=== PATIENT | male | born 1955 | race Caucasian/White ===

== ENCOUNTER 2016-08-05 13:07 | Inpatient (IN) | payer OTHER ==
[~2016-08-05] VITALS: Ht 188 cm; Wt 116.0 kg
[2016-08-05] MEDS ORDERED: ACETAMINOPHEN 500 MG TAB PO STA (13:26)
[2016-08-05] MEDS ORDERED: ONDANSETRON 4 MG INJ IV STA (13:26)
[2016-08-05] MEDS ORDERED: SOD CHLORIDE 0.9% 1,000 ML IV STA (13:26)
[2016-08-05] MEDS ORDERED: morphine 4 MG/ML VIAL IV STA (13:26)
--- NOTE | 2016-08-05 13:53 | ERD ---
ER Documentation Chief Complaint Date/Time DATE: 08/05/16 TIME: 13:51 Chief Complaint LOWER RT ABD PAIN, SENT BY PCP FOR R/O APPENDICITIS HPI This a 61-year-old male who presents to the emergency department today for lower abdominal pain after being sent by his primary care physician to rule out appendicitis. Patient states he has had pain for the past 1-2 weeks they got significantly worse last night. States that he thinks the fever started last night. States he took aspirin for the pain. Denies any nausea vomiting, testicular pain ROS All systems reviewed and are negative except as per history of present illness. Allergies Allergies: Coded Allergies: No Known Allergy (Unverified , 08/05/16) PMhx/Soc History of Surgery: Yes (Cardiac Surgery 1962) Anesthesia Reaction: No Hx Neurological Disorder: No Hx Respiratory Disorders: No Hx Psychiatric Problems: No Hx Miscellaneous Medical Probl: No Hx Alcohol Use: No Hx Substance Use: No Hx Tobacco Use: No Smoking Status: Never smoker Physical Exam Vitals Vital Signs Date Time Temp Pulse Resp B/P Pulse Ox O2 Delivery O2 Flow Rate FiO2 08/05/16 13:09 100.8 115 18 114/82 96 Physical Exam Const: No acute distress Head: Atraumatic Eyes: Normal Conjunctiva ENT: Normal External Ears, Nose and Mouth. Neck: Full range of motion..~ No meningismus. Resp: Clear to auscultation bilaterally Cardio: Regular rate and rhythm, no murmurs Abd: Soft, right lower quadrant pain. Tenderness McBurney's. non distended. Normal bowel sounds. Mild left lower quadrant pain. No right upper quadrant tenderness. No epigastric tenderness. Skin: No petechiae or rashes Back: No midline or flank tenderness Ext: No cyanosis, or edema Neur: Awake and alert Psych: Normal Mood and Affect Result Diagram: 08/05/16 1355 08/05/16 1355 Results 24 hrs Laboratory Tests Test 08/05/16 13:55 White Blood Count 16.110^3/ul Red Blood Count 4.9210^6/ul Hemoglobin 15.0g/dl Hematocrit 43.6% Mean Corpuscular Volume 88.6fl Mean Corpuscular Hemoglobin 30.5pg Mean Corpuscular Hemoglobin Concent 34.4g/dl Red Cell Distribution Width 12.2% Platelet Count 31307^3/UL Mean Platelet Volume 9.4fl Neutrophils % 85.4% Lymphocytes % 7.5% Monocytes % 6.0% Eosinophils % 0.0% Basophils % 0.4% Nucleated Red Blood Cells % 0.0/100WBC Neutrophils # 13.810^3/ul Lymphocytes # 1.210^3/ul Monocytes # 1.010^3/ul Eosinophils # 0.010^3/ul Basophils # 0.110^3/ul Nucleated Red Blood Cells # 0.010^3/ul Urine Color DK. YELLOW Urine Clarity CLEAR Urine pH 5.5 Urine Specific [place] >=1.030 Urine Ketones NEGATIVE Urine Nitrite NEGATIVE Urine Bilirubin 1+ Urine Ictotest NEGATIVE Urine Urobilinogen 0.2 E.U./dL Urine Leukocyte Esterase NEGATIVE Urine Microscopic RBC NONE SEEN/HPF Urine Microscopic WBC 2-5/HPF Urine Mucus MANY Urine Hemoglobin NEGATIVE Urine Glucose NEGATIVE% Urine Total Protein TRACE Sodium Level 138mmol/L Potassium Level 4.1mmol/L Chloride Level 100mmol/L Carbon Dioxide Level 24mmol/L Anion Gap 18 Blood Urea Nitrogen 19mg/dl Creatinine 1.46mg/dl Glucose Level 108mg/dl Calcium Level 9.3mg/dl Total Bilirubin 0.8mg/dl Direct Bilirubin 0.00mg/dl Indirect Bilirubin 0.8mg/dl Aspartate Amino Transf (AST/SGOT) 16IU/L Alanine Aminotransferase (ALT/SGPT) 30IU/L Alkaline Phosphatase 85IU/L Total Protein 8.5g/dl Albumin 5.1g/dl Globulin 3.40g/dl Albumin/Globulin Ratio 1.50 Lipase 35U/L Current Medications Medications (Trade) Dose Ordered Sig/Ranulfo Route PRN Reason Start Time Stop Time Status Last Admin Dose Admin Sodium Chloride (NS) 1,000 ml @ 1,000 mls/hr Q1H STAT IV 08/05/16 13:26 08/05/16 14:25 DC 08/05/16 14:01 Morphine Sulfate (morphine) 4 mg ONCE STAT IV 08/05/16 13:26 08/05/16 13:28 DC 08/05/16 14:05 Ondansetron HCl (Zofran Inj) 4 mg ONCE STAT IV 08/05/16 13:26 08/05/16 13:28 DC 08/05/16 14:02 Acetaminophen (Tylenol Tab) 500 mg ONCE STAT PO 08/05/16 13:26 08/05/16 13:28 DC 08/05/16 14:02 Procedures/MDM This 61-year-old male who presents to the emergency department today complaining of abdominal pain for the past 1-2 weeks that worsened last night. Patient saw his primary care physician Dr.Josef Vazquez and was referred here to the emergency department for further evaluation. Patient was slightly febrile at 100.8 and slightly tachycardic here in the emergency department. I did obtain laboratory work as well as imaging. Laboratory work shows an elevated white blood cell count of 16.1. He is not anemic. Platelets are within normal limits. Electrolytes are within normal limits. Liver function within normal limits. Glucose is within normal limits. Lipase within normal limits. UA is negative for infection. CT abdomen pelvis noncontrast is pending at time of signout to Dr. Soto. Patient was given morphine, Zofran, Tylenol and IV fluids here in the emergency department. Patient symptoms at this time consistent with abdominal pain. Any further documentation orders placed will be completed by Dr. Soto, or the attending physician. Departure Diagnosis: Primary Impression: Abdominal pain Abdominal location: right lower quadrant Qualified Code: R10.31 - Right lower quadrant abdominal pain Condition: Fair RONNIE TAMEZ PA-C Aug 05, 2016 13:53
[2016-08-05 14:31] LABS: ADD SCAN DIFF NO
[2016-08-05 14:34] LABS: BASOPHIL # 0.1 10^3/ul (0.0-0.1); BASOPHILS % 0.4 % (0.0-2.0); HEMATOCRIT 43.6 % (42.0-52.0); LYMPHOCYTES # 1.2 10^3/ul (0.8-2.9); LYMPHOCYTES % 7.5 % (15.0-51.0); MEAN CORPUSCULAR HEMOGLOBIN 30.5 pg (29.0-33.0); MEAN CORPUSCULAR HGB CONC 34.4 g/dl (32.0-37.0); MEAN CORPUSCULAR VOLUME 88.6 fl (82.0-101.0); MEAN PLATELET VOLUME 9.4 fl (7.4-10.4); NEUTROPHIL # 13.8 10^3/ul (1.6-7.5); NEUTROPHILS % 85.4 % (39.0-77.0); PLATELET COUNT 334 10^3/UL (140-415); RED BLOOD COUNT 4.92 10^6/ul (4.70-6.10); RED CELL DISTRIBUTION WIDTH 12.2 % (11.5-14.5); WHITE BLOOD COUNT 16.1 10^3/ul (4.8-10.8)
[2016-08-05 14:41] LABS: ADD UMIC YES; UR BILIRUBIN (Dip) 1+ (NEGATIVE); UR BLOOD (Dip) NEGATIVE (NEGATIVE); UR CLARITY CLEAR (CLEAR); UR COLOR DK. YELLOW (YELLOW); UR GLUCOSE (Dip) NEGATIVE (NEGATIVE); UR KETONES (Dip) NEGATIVE (NEGATIVE); UR LEUKOCYTE ESTERASE (Dip) NEGATIVE (NEGATIVE); UR NITRITE (Dip) NEGATIVE (NEGATIVE); UR TOTAL PROTEIN (Dip) TRACE (NEGATIVE); UR UROBILINOGEN (Dip) 0.2 E.U./dL (0.1-1.0)
[2016-08-05 14:50] LABS: ICTOTEST NEGATIVE (NEGATIVE)
[2016-08-05 14:51] LABS: ALBUMIN 5.1 g/dl (3.3-4.9); ALBUMIN/GLOBULIN RATIO 1.5; BILIRUBIN,INDIRECT 0.8 mg/dl (0-1.1); BILIRUBIN,TOTAL 0.8 mg/dl (0.2-1.3); CALCIUM 9.3 mg/dl (8.4-10.2); CREATININE 1.46 mg/dl (0.61-1.24); POTASSIUM 4.1 mmol/L (3.5-5.1); TOTAL PROTEIN 8.5 g/dl (6.1-8.1); UR MUCUS MANY; URINE RBCS NONE SEEN /HPF (0)
--- NOTE | 2016-08-05 17:56 | RADRPT ---
PROCEDURE: CT scan of the abdomen and pelvis without IV contrast. CLINICAL INDICATION: 61-year-old male with abdominal pain and elevated white count. Rule out appen dicitis. TECHNIQUE: Thin section axial, coronal and sagittal images were performed through the abdomen and pelvis without contrast on a [employer] CT scanner. Radiation Dose: CTDI: 23.4 and DLP: 1632. One or more of the following dose reduction techniques were used: - Automated exposure control. - Adjustment of the mA and/or kV according to patient size. Use of iterative reconstruction technique. COMPARISON: Chest x-ray 03/22/2016 06:18 a.m. FINDINGS: Soft tissues: 90th are generous. There is a small midline umbilical hernia.. Lungs and pleural spaces: There is peripheral atelectasis in the right lower lobe. There is additio nal plate-like atelectasis in the left lower lobe. There is peribronchial thickening in the right a nd left lower lung goss. This finding is consistent with small airway disease. Heart: The heart is normal in size with no pericardial effusion identified. The liver, common bile duct and gallbladder: The liver is enlarged measuring 17.4 cm AP. No hepatic mass or intrahepatic biliary ductal dilatation is identified. Gastrointestinal: The stomach is unremarkable. There are displaced small bowel loops in the mid ab domen surrounding and encapsulated fluid collection measuring roughly 7.6 cm transverse by 6.5 cm in height by up to 5.5 cm AP. There is stranding in the mesentery with a tubular shaped fluid filled right upper quadrant structure extending toward the encapsulated fluid collection. It is unclear if this structure represents an inflamed vermiform appendix or small bowel. There is a small midline umbilical hernia. There is no evidence of diverticulosis. There are small inguinal hernias containing fat. Pancreas: The pancreas is normal. Kidneys, bladder and adrenal glands : There is stranding in the fat adjacent to the right and left k idneys. There is no evidence of a a mass or nephrolith. The adrenal glands and urinary bladder are normal. Spleen: Normal. Lymph nodes: No enlarged periportal, retroperitoneal, mesenteric, pelvic sidewall or inguinal lymph nodes are identified. Reproductive system and pelvis : The prostate gland and seminal vesicles are unremarkable. There is no free fluid in the pelvis. Bony elements: There are degenerative changes in the thoracic and lumbar spine and involving the SI joints. No acute bony fracture or bone metastasis is identified. A mediastinotomy was performed. T here are degenerative changes of the lower lumbar spine with bilateral bony nerve root canal stenosi s at L4-5 and L5-S1. Vasculature: There are vascular calcifications in the mid abdominal aorta, proximal right renal francois ry and distal right common femoral artery. IMPRESSION: 1. Acute peritonitis with a fluid-filled encapsulated fluid collection in the lower mid abdomen cyndy suring 7.6 cm transverse by 6.5 cm in height by 5.5 cm AP. This is suspicious for a mid abdominal a bscess. There is an adjacent tubular inflamed structure of unclear etiology. Is unclear this repre sents adjacent inflamed small bowel or ruptured appendix. A ruptured vermiform appendix with mid abd ominal abscess would be the primary differential consideration. 2. Perinephric stranding. 3. Atherosclerotic vascular disease. 4. Midline small umbilical hernia containing fat. 5. Bilateral inguinal hernias containing fat. 6. Atherosclerotic vascular disease. 7. 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 8. Status post median sternotomy. Findings were phoned to and discussed with physician's speech pathologist assistant Aleksandr Morales at 05:50 p.m. to ens ure proper follow-up care of the patient. RPTAT:AAJJ Physician Chase Date Time Electronically viewed and signed by Physician Chase on 08/05/2016 17:56 POOL/
[2016-08-05] MEDS ORDERED: SODIUM CHLORIDE 0.9% 1L BAG IV* STA (18:04)
[2016-08-05] MEDS ORDERED: PIPER-TAZO 3.375 GM IV (PMX) 100 ML IVPB ONE (18:30)
[2016-08-05] MEDS ORDERED: ASPI325T4 PO (18:49)
[2016-08-05] MEDS ORDERED: ONDANSETRON 4 MG INJ IV PRN ×2 (19:00→19:30)
[2016-08-05] MEDS ORDERED: ACETAMINOPHEN 325 MG TAB PO PRN (19:00)
[2016-08-05] MEDS ORDERED: ACETAMINOPHEN 650 MG SUPP PR PRN (19:30)
[2016-08-05] MEDS ORDERED: NACL 0.9% 3 ML SYG IV SCH (19:30)
--- NOTE | 2016-08-05 19:55 | QN ---
Documentation Comment I have seen and evaluated the patient along with the PA and/or SALES AND MARKETING EXECUTIVE provider. I agree with the evaluation and plan of care. Please see their documentation for full ER course and evaluation. In short: Patient sent to the emergency room for evaluation of appendicitis. The patient describes pain on and off for 1 week but worse last night. He has a subjective fever. On exam: [General: Well developed, well nourished, no acute distress Head: Normocephalic, atraumatic. Eyes: Pupils equally reactive, EOM intact ENT: Moist mucous membranes Neck: Supple, no lymphadenopathy Respiratory: Lungs clear bilaterally, no distress Cardiovascular: RRR, no murmurs, rubs, or gallops Abdominal: Soft, mild generalized tenderness without rebound or guarding : Deferred MSK: No edema, no unilateral swelling, 5/5 strength Neurologic: Alert and oriented, moving all extremities, normal speech, no focal weakness, no cerebellar signs Skin: No rash Psych: Normal mood Assessment and plan: The patient's CT scan is documented below. The patient has evidence of a large abscess likely consistent with perforated appendicitis. The patient is hemodynamically stable. The patient does have Sirs criteria with source consistent with sepsis but lactic acid is normal. No hypotension no evidence of endorgan dysfunction. The patient had a 30 cc/kg bolus of saline and was given Zosyn. General surgery was called. This is likely going to be case for interventional radiology, the general surgeon, Dr. Colon will evaluate the patient and discussed with interventional radiology as needed. Dr. Vazquez, referring provider at bedside. Patient informed and updated Accepting care team and consultations: I discussed the current laboratory data, diagnostic imaging and emergency care provided. Admitting team: Dr. Vazquez Admitting team indication: Insurance directed Consulting services: Dr. Colon, general surgeon IMPRESSION: 1. Acute peritonitis with a fluid-filled encapsulated fluid collection in the lower mid abdomen measuring 7.6 cm transverse by 6.5 cm in height by 5.5 cm AP. This is suspicious for a mid abdominal abscess. There is an adjacent tubular inflamed structure of unclear etiology. Is unclear this represents adjacent inflamed small bowel or ruptured appendix. A ruptured vermiform appendix with mid abdominal abscess would be the primary differential consideration. 2. Perinephric stranding. 3. Atherosclerotic vascular disease. 4. Midline small umbilical hernia containing fat. 5. Bilateral inguinal hernias containing fat. 6. Atherosclerotic vascular disease. 7. 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 8. Status post median sternotomy. Findings were phoned to and discussed with physician's multimedia production assistant Aleksandr Morales at 05:50 p.m. to ensure proper follow-up care of the patient. Diagnostic impression: Acute perforated appendicitis with associated abscess Sepsis Patient admitted to the medical surgical floor in stable condition KONSTANTIN RICARDO MD Aug 05, 2016 19:55
[2016-08-05 20:00] VITALS: TEMP 97.6
[2016-08-05] MEDS: morphine 2 MG INJ IV PRN ×2 (20:08→23:53)
[2016-08-05 22:23] VITALS: BP 126/72; RESP 16
[2016-08-05] MEDS: SOD CHLORIDE 0.9% 1,000 ML IV SCH (22:32)
[2016-08-05] MEDS: FAMOTIDINE 20 MG INJ IV SCH (22:32)
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
[2016-08-05 22:57] VITALS: Ht 188 cm; Wt 116.0 kg
[2016-08-05] MEDS: PIPER-TAZO 3.375 GM IV (PMX) 100 ML IVPB SCH (23:51)
[2016-08-06] VITALS (16 sets, daily range): BP systolic 93–132; BP diastolic 45–78; PULSE 82–100; RESP 16–23
[2016-08-06] MEDS: morphine 2 MG INJ IV PRN ×2 (04:31→08:38)
[2016-08-06] MEDS: PIPER-TAZO 3.375 GM IV (PMX) 100 ML IVPB SCH ×4 (06:13→23:44)
[2016-08-06] MEDS: SOD CHLORIDE 0.9% 1,000 ML IV SCH ×2 (06:18→10:34)
[2016-08-06 06:38] LABS: ADD SCAN DIFF NO
[2016-08-06 06:48] LABS: BASOPHIL # 0.1 10^3/ul (0.0-0.1); BASOPHILS % 0.5 % (0.0-2.0); EOSINOPHILS % 0.3 % (0.0-7.0); HEMATOCRIT 36.8 % (42.0-52.0); HEMOGLOBIN 12.1 g/dl (14.0-18.0); LYMPHOCYTES # 1.1 10^3/ul (0.8-2.9); LYMPHOCYTES % 10.4 % (15.0-51.0); MEAN CORPUSCULAR HGB CONC 32.9 g/dl (32.0-37.0); MEAN CORPUSCULAR VOLUME 91.1 fl (82.0-101.0); MONOCYTE # 0.9 10^3/ul (0.3-0.9); MONOCYTES % 8.5 % (0.0-11.0); NEUTROPHIL # 8.5 10^3/ul (1.6-7.5); NEUTROPHILS % 79.5 % (39.0-77.0); PLATELET COUNT 245 10^3/UL (140-415); RED BLOOD COUNT 4.04 10^6/ul (4.70-6.10); RED CELL DISTRIBUTION WIDTH 12.2 % (11.5-14.5); WHITE BLOOD COUNT 10.6 10^3/ul (4.8-10.8)
[2016-08-06] MEDS ORDERED: ACETAMINOPHEN 1000 MG/100 ML IVPB ONE (07:00)
[2016-08-06 07:16] LABS: ALBUMIN 3.8 g/dl (3.3-4.9); ALBUMIN/GLOBULIN RATIO 1.46; BILIRUBIN,INDIRECT 0.6 mg/dl (0-1.1); BILIRUBIN,TOTAL 0.6 mg/dl (0.2-1.3); CALCIUM 8.3 mg/dl (8.4-10.2); CHOL/HDL RATIO 3.4 RATIO; CREATININE 1.14 mg/dl (0.61-1.24); POTASSIUM 3.7 mmol/L (3.5-5.1); TOTAL PROTEIN 6.4 g/dl (6.1-8.1)
[2016-08-06 07:44] LABS: THYROID STIMULATING HORMONE 1.98 MIU/L (0.465-4.680)
[2016-08-06] MEDS: FAMOTIDINE 20 MG INJ IV SCH (08:38)
[2016-08-06 10:42] LABS: INR 1.23; PROTIME 15.6 Sec (12.2-14.2); PT RATIO 1.2
[2016-08-06] MEDS ORDERED: BUPIVACAINE 0.25%/EPI (SDV) 30 ML INJ ONE (12:08)
--- NOTE | 2016-08-06 12:17 | HPN ---
Date/Time of Note Date/Time of Note DATE: 08/06/16 TIME: 12:17 Interval H&P Admission Note Pt. seen H&P reviewed: No system changes Pt. seen H&P reviewed. No system changes (I attest that I have seen and examined the patient and reviewed the operation in detail, as well as its risks , benefits and alternatives of the operation). I attest that I have seen and examined the patient and reviewed in detail the operation, and its associated risks, benefits and alternative. I have answered all the patient's questions to the best of my ability and the patient wishes to proceed. Please refer to rest of electronic medical record for additional updates. SHARAD READ M.D. Aug 06, 2016 12:17
[2016-08-06] MEDS ORDERED: FENTAnyl 50 MCG/ML VIAL ONE (12:32)
[2016-08-06] MEDS ORDERED: MIDAZOLAM 1 MG/ML 2 ML INJ ONE (12:32)
[2016-08-06] MEDS ORDERED: LIDOCAINE 2% (SDV) 5 ML INJ ONE (12:41)
[2016-08-06] MEDS ORDERED: ROCURONIUM 50 MG INJ ONE (12:41)
[2016-08-06] MEDS ORDERED: SUCCINYLCHOLINE CHLORIDE 100 MG/5 ML SYG IV ONE (12:41)
[2016-08-06] MEDS ORDERED: PROPOFOL 20 ML ONE (12:41)
[2016-08-06] MEDS ORDERED: ONDANSETRON 4 MG INJ ONE (12:53)
[2016-08-06] MEDS ORDERED: METOCLOPRAMIDE 10 MG INJ ONE (12:53)
[2016-08-06] MEDS ORDERED: PHENYLephrine (100 MCG/ML) 5ML SYG ONE (12:56)
--- NOTE | 2016-08-06 12:57 | CONS ---
[facility] INITIAL INPATIENT CONSULTATION NOTE: DATE OF CONSULTATION: 08/06/2016 PLACE OF SERVICE: [facility] preoperative area. ASSESSMENT AND PLAN: A very pleasant 61-year-old gentleman with a few comorbid issues including BMI of 32.8 as well as prior cardiac surgery in the 1960s presenting with signs and symptoms consistent with acute appendicitis with possible localized perforation. A very small chance that there is an abscess present and I believe this is due to the anatomy of the patient and not so much to abscess formation. At this time, the most effective treatment for him would be a laparoscopic, and an open exploration with the aim of doing an appendectomy. I also explained to him the smaller chance of other pathology going on, which would then require us to do other procedures such as drainage procedure, partial bowel resection and other needed interventions. I explained all of this in detail including the operation itself, the risks, benefits and alternatives, and the expected outcomes to the patient along with his brother who was visiting with him. I answered all of their questions to the best of my ability. I believe that the patient and family appeared to understand and agrees with the plan. With above assessment I have recommended the following: To the operating room for above. Thank you again for allowing us to participate in the care of this very pleasant gentleman and his wonderful family. If there are any questions, please feel free to contact me at [phone]. UPDATED CLINICAL SUMMARY: A very pleasant 61-year-old gentleman with comorbidities including BMI of 32.8 as well as coronary artery disease status post coronary artery bypass grafting in the 1960s, presenting with abdominal pain of 2 to 3-day duration and a CT scan that is worrisome for acute appendicitis. COMORBIDITIES: 1. BMI 32.8. 2. Status post atrial septal defect in the 1960s. 3. A former smoker many years ago. 4. History of appendicitis in 2 other brothers status post appendectomies in the past. 5. History of prostate cancer in the father. 6. Atherosclerotic vascular disease. 7. Midline small umbilical hernia containing fat. 8. Bilateral inguinal hernias containing fat. 9. 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 DATE OF ADMISSION: 08/05/2016 HISTORY OF PRESENT ILLNESS: The patient is a very pleasant 61-year-old gentleman with above-mentioned comorbidities whom we were kindly asked to consult regarding management of possible acute appendicitis. He reported 2 to 3 day history of abdominal pain without associated nausea or vomiting, but associated with chills. Slight amount of diarrhea also noted, but no constipation and no blood in the stool or urine. Patient has not had any abdominal surgeries in the past and no other pains such as this. No mention of any issues with his colon. ALLERGIES: NO KNOWN DRUG ALLERGIES. HOME MEDICATIONS: Aspirin 81 mg every day. SOCIAL HISTORY: The patient smoked when he was younger in the 1980s. He drinks alcohol on a social level, but rarely. No use intravenous drug use in the past. He is single and has never been and does not have any children. Multiple brothers and sisters, approximately 7 brothers and 1 sister , 2 of whom had appendicitis as well. FAMILY HISTORY: Patient's father and had prostate cancer. The patient's mother from old age. 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 REVIEW OF SYSTEMS: Other than the above-mentioned, there are no other pertinent positives or pertinent negatives in a complete 14-point review of systems. PHYSICAL EXAMINATION: GENERAL: The patient appears to be a very pleasant gentleman of perhaps mixed descent, lying in bed comfortably and in no acute distress. BMI is 32.8. VITAL SIGNS: Temperature 98.5, blood pressure 127/67, pulse 84, respiratory rate 16, pulse oximetry 94% on room air. CHEST: Shows a well-healed mid sternal incision corresponding to his cardiac surgery in the 1960s. It rises symmetrically and there are no audible wheezes, rales or rhonchi on the gross exam. HEENT: Normocephalic and atraumatic. Extraocular muscles and hearing are grossly intact bilaterally and symmetrically. Sclerae are nonicteric. Oral cavity is clear; oral mucosa appeared to be pink and moist. Dentition: fair. NECK: Supple. There is no lymphadenopathy or JVD. There is no submental, submandibular or supraclavicular lymphadenopathy. CHEST: Rises symmetrically with each breath; patient is breathing comfortably. There are no audible wheezes, rales or rhonchi on the gross exam. HEART: Pulse is regular and palpable on the right wrist. Capillary refill was normal. Carotid pulses are palpable bilaterally and symmetrically in the neck. EXTREMITIES: Lower extremities contain no pitting edema around the ankles bilaterally and symmetrically. ABDOMEN: Shows an abdomen that is not distended and is otherwise soft and mild to moderately tender to palpation. mainly in the mid and right mid quadrants. There does not seem to be any organomegaly, caput medusae, engorged subcutaneous veins, or ascites. I do not appreciate significant discernible hernia around the umbilicus. There are no peritoneal signs or guarding. SKIN: Appears to be pink and feels warm to touch. NEUROLOGIC: Awake, alert, and follows commands appropriately. LABORATORY DATA: White blood cell count 10.6, down from 16.1, hemoglobin 12.1, platelets 245. Electrolytes are normal. Creatinine 1.14, CO2 21. Lactic acid has been normal at 0.7, total bilirubin 0.6, AST 15, ALT 22, alkaline phosphatase 64, albumin 3.8 after hydration. Triglycerides 87. Lipase 35. INR 1.2. Urinalysis showed no nitrite or leukocyte esterase. IMAGING: Patient had an abdominal and pelvic CT scan. Most of the results, I reviewed above. I did review the CT images with Dr. Green carefully and we both agreed that the patient does not have a 7.6 x 6.5 x 5.5 cm abscess. Instead, this appears to be the patient's cecum and there is a dilated and inflamed appendix. The position of this is a bit unusual and appears to be in the middle of the abdomen as opposed to the right side of the abdomen. There is also a very long and redundant sigmoid colon that goes all the way up to the hepatic flexure. Otherwise, I agree in general with their overall reported findings. Dictated By: SHARAD ARENAS/DALE Conf#: [id number] DID#: [id number]
[2016-08-06] MEDS ORDERED: EPHEDrine SULFATE 50 MG/5 ML SYG ONE (13:17)
[2016-08-06] MEDS ORDERED: HYDROmorphONE 2 MG/ML SYG ONE (13:26)
[2016-08-06] MEDS ORDERED: DIPHENHYDRAMINE 50 MG INJ IV PRN (13:30)
[2016-08-06] MEDS ORDERED: HYDROmorphONE (0.2 MG/ML) 10ML SYG IV PRN ×2 (13:30)
[2016-08-06] MEDS ORDERED: ONDANSETRON 4 MG INJ IV PRN (13:30)
[2016-08-06] MEDS ORDERED: FENTAnyl 50 MCG/ML VIAL IV PRN (13:30)
[2016-08-06] MEDS ORDERED: MEPERIDINE 25 MG INJ IV PRN (13:30)
[2016-08-06] MEDS ORDERED: PROCHLORPERAZINE 10 MG INJ IV PRN (13:30)
[2016-08-06] MEDS ORDERED: OXYCODONE/ACETAMINOPHEN (5/325) TAB PO PRN ×2 (13:30)
[2016-08-06] MEDS ORDERED: LABETALOL HCL 20MG INJ ONE (13:37)
[2016-08-06] MEDS ORDERED: KETOROLAC 30 MG INJ ONE (13:49)
[2016-08-06] MEDS ORDERED: NEOSTIGMINE 3 MG/3 ML SYRINGE ONE ×2 (13:51→14:04)
[2016-08-06] MEDS ORDERED: GLYCOPYRROLATE 0.4 MG INJ ONE ×2 (13:51→14:04)
[2016-08-06] MEDS ORDERED: BISACODYL 10 MG SUPP PR PRN (14:30)
[2016-08-06] MEDS ORDERED: HYDROCODONE/APAP (5/325) TAB PO PRN ×2 (14:30)
[2016-08-06] MEDS ORDERED: NA PHOSPHATE/BIPHOS 133 ML ENEMA PR PRN (14:30)
[2016-08-06] MEDS ORDERED: DOCUSATE SODIUM 100 MG CAP PO PRN (14:30)
[2016-08-06] MEDS ORDERED: HYDROmorphONE 1 MG/ML SYG IV PRN (14:30)
[2016-08-06] MEDS: D5W-0.45 NACL + KCL 20 MEQ 1,000 ML IV SCH (15:29)
--- NOTE | 2016-08-06 15:29 | OPR ---
Date/Time of Note Date/Time of Note DATE: 08/06/16 TIME: 15:29 Operative Report Operative\Procedure Findings [facility] INPATIENT OPERATIVE NOTE PLACE OF SERVICE: [facility] DATE OF SURGERY: 08/06/2016 PREOPERATIVE DIAGNOSIS: 1. Acute appendicitis 2. Status post atrial septal defect in the 1960s. 3. A former smoker many years ago. 4. History of appendicitis in 2 other brothers status post appendectomies in the past. 5. History of prostate cancer in the father. 6. Atherosclerotic vascular disease. 7. Midline small umbilical hernia containing fat. 8. Bilateral inguinal hernias containing fat. 9. 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 10. BMI 32.8. POSTOPERATIVE DIAGNOSIS: 1. Acute appendicitis (retrocecal) 2. Status post atrial septal defect in the 1960s. 3. A former smoker many years ago. 4. History of appendicitis in 2 other brothers status post appendectomies in the past. 5. History of prostate cancer in the father. 6. Atherosclerotic vascular disease. 7. Midline small umbilical hernia containing fat. 8. Bilateral inguinal hernias containing fat. 9. 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 10. BMI 32.8. OPERATION: 1. Laparoscopic appendectomy SURGEON: Sharad Read M.D. CLINICAL NURSE EDUCATOR: Millie ANESTHESIA: General endotracheal tube anesthesia ANESTHESIOLOGIST: Yessica Bender M.D. BRIEF SUMMARY: An otherwise uncomplicated laparoscopic appendectomy was performed with findings of non-perforated appendicitis that appeared to be retrocecal. UPDATED CLINICAL SUMMARY: A very pleasant 61-year-old gentleman with comorbidities including BMI of 32.8 as well as coronary artery disease status post coronary artery bypass grafting in the , presenting with abdominal pain of 2 to 3-day duration and a CT scan that is worrisome for acute appendicitis. COMORBIDITIES: 1. BMI 32.8. 2. Status post atrial septal defect in the 1960s. 3. A former smoker many years ago. 4. History of appendicitis in 2 other brothers status post appendectomies in the past. 5. History of prostate cancer in the father. 6. Atherosclerotic vascular disease. 7. Midline small umbilical hernia containing fat. 8. Bilateral inguinal hernias containing fat. 9. 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 BRIEF HISTORY: The patient is a very pleasant 61-year-old gentleman with a few comorbid issues including BMI of 32.8 as well as prior cardiac surgery in the 1960s presenting with signs and symptoms consistent with acute appendicitis with possible localized perforation. A very small chance that there is an abscess present and I believe this is due to the anatomy of the patient and not so much to abscess formation. At this time, the most effective treatment for him would be a laparoscopic, and an open exploration with the aim of doing an appendectomy. I also explained to him the smaller chance of other pathology going on, which would then require us to do other procedures such as drainage procedure, partial bowel resection and other needed interventions. I explained all of this in detail including the operation itself, the risks, benefits and alternatives, and the expected outcomes to the patient along with his brother who was visiting with him. I answered all of their questions to the best of my ability. I believe that the patient and family appeared to understand and agrees with the plan. For a detailed report of my consultation with patient and family, please refer to my separate consultation note. STATEMENT OF THE INFORMED CONSENT: The patient and family appeared to understand the risks of the operation to include, but not be limited to risk of postoperative pain and scar tissue, possible infection or bleeding requiring other interventions such as opening the wound, placement of drainage catheters, or other operative interventions; possible injury to surrounding to structures including bowel, bladder, bile duct, or blood vessels, or solid organs such as liver, kidney, or pancreas requiring other interventions or procedures; possible leakage of bowel from anastomotic sites or suture lines causing significant increase in morbidity and mortality and requiring multiple interventions including but not limited to, placement of drainage catheters, imaging studies, as well as operative interventions; possible other source of sepsis such as urinary tract infections or pneumonias, or other sources of potentially life threatening problems such as deep venous thrombus formation causing pulmonary embolism, myocardial arrhythmias and infarctions, and even . After careful consideration of all their options, the patient and family appeared to understand and wished to proceed with surgery. DESCRIPTION OF PROCEDURE: After obtaining informed consent, the patient was brought into the operating room and was placed in a normal supine position, where successful general endotracheal tube anesthesia was performed. Intravenous access was already in place and intravenous antimicrobials had been appropriately chosen and dosed prior to the operation. The patient's abdominal skin was prepped and draped from the nipple line down to the level of the upper thighs in the usual sterile fashion. We then called a surgical time-out where the patient's identification, date of , nature of the operation, allergies , presence of intravenous antimicrobials, presence of needed equipment, and any other concerns were reviewed and agreed upon by all members of the operating room team. We then started the operation by placing a 5 mm skin incision in the left lower quadrant and then introduced a 5 mm [employer] trocar into the peritoneal space, visualizing all the layers of the abdominal wall as we entered. Note that there was no indication of any injury to underlying structures with our entry into the peritoneal space. We insufflated the abdominal cavity to a maximum pressure of 15 mmHg and again inspected the area of insertion and ensured no obvious injury to underlying structures prior to inspecting the abdominal cavity and showing no obvious pus, bowel contents, or other abnormal features. We could not see the appendix very well. We, therefore, injected the future sites of our other trocars with 0.25% Marcaine with epinephrine and placed a 5 mm [employer] trocar into the midline suprapubic area, taking care not to injure the bladder. Note that we place a Grande catheter in the patient prior to starting the operation. We also placed a 12 mm trocar in the umbilical midline area, all under direct visualization. With our instruments in place, we had excellent visualization and access to the right lower quadrant. We then identified the appendix, which was inflamed and appeared to be wedged between the course of the cecum in a retrocecal fashion and the elongated sigmoid colon that was going up towards the right upper quadrant. The appendix appeared to have a normal base coming out of the cecum. I then went ahead and used judicious amount of cautery as well as mostly blunt dissection to circumferentially isolate the base of the appendix and then transected this using one firing of the white load of the Endo-SILVANO stapler. We also repeated the firing on the mesentery of the appendix and completely disconnected the organ from the colon, delivered this out through the 12 mm trocar site inside of an EndoCatch bag without having to enlarge the fascial defect as well as without contaminating the wound. The specimen was sent to Pathology for further analysis. We then ensured adequate hemostasis and bile stasis, removed all our equipment including the pneumoperitoneum from the abdominal cavity prior to closing the infraumbilical fascia with 1 [id number] 0 Vicryl suture on a UR -6 needle, washing the wounds with copious amounts of normal saline, injecting the initial insertion point of the trocar with 0.25% Marcaine with epinephrine, and then closing the skin using interrupted 4-0 Monocryl sutures. Light dressing was then applied. At the end of the operation, both the sponge count and needle count were reportedly correct x2. The patient tolerated the procedure without any reported complications. ESTIMATED BLOOD LOSS: Less than 10 mL. BLOOD OR BLOOD PRODUCT TRANSFUSIONS: None to my knowledge. SPECIMENS: 1. Appendix COMPLICATIONS: None. DISPOSITION: Recovery area. Disclaimer: Inadvertent spelling and grammatical errors are likely due to EHR/ dictation software use and do not reflect on the quality of delivered patient care. SHARAD READ M.D. Aug 06, 2016 15:29
--- NOTE | 2016-08-06 15:53 | PN ---
DATE: 08/06/2016 Patient seen. The patient has status post laparoscopic appendectomy with incidental umbilical herni a repair. The patient overall tolerated the procedure well. Everything was done laparoscopically. The patient is overall with no specific complaints. PHYSICAL EXAMINATION: VITAL SIGNS: Temperature 98.4, pulse is 92, respirations 20, blood pressure 116/45, saturation 100% on 2 liters. GENERAL: The patient is in no acute distress. HEENT: Normocephalic, atraumatic. CARDIOVASCULAR: S1, S2, regular rate. LUNGS: Clear. ABDOMEN: Soft, nontender. EXTREMITIES: No clubbing, cyanosis, or edema. ____ LABORATORY DATA: White count is now normal at 10.6, hemoglobin is 12.1, hematocrit 37, platelet cou nt of 245, neutrophils 80%, lymphocytes 10%. Chemistry: Sodium is 140, potassium 3.7, chloride 108 , bicarbonate 21, BUN 18, creatinine 1.14, glucose of 70. AST 15, ALT 22, alkaline phosphatase 64. Cholesterol 137, LDL 80, HDL 40. TSH is 1.98. Urinalysis on admission was negative. The patient' s imaging tests on admission were reviewed. MEDICATIONS: 1. Pepcid 20 mg IV daily. 2. Lovenox 40 mg subcutaneous daily. 3. Dickinson p.r.n. 4. Dilaudid p.r.n. 5. Colace p.r.n. 6. Dulcolax and Fleet enema p.r.n. 7. He is on D5 half normal with 20 of KCl at 160 mL. OTHER MEDICATIONS: Include: 1. Dilaudid. 2. Fentanyl. 3. Percocet. ____during the surgery. ASSESSMENT AND PLAN: This is a 60-year-old male with no past medical history who presented with abdominal pain, was found to have peritonitis and likely a perforated acute appendicitis. 1. Acute appendicitis status post laparoscopic appendectomy. White count is normal. Continue anti biotic management. Follow up Dr. Colon surgical recommendations. Diet to be advanced per surgical team. 3. The patient will be placed on deep vein thrombosis prophylaxis and gastrointestinal prophylaxis. 4. Clinically stable. Follow up a.m. labs. DISPOSITION: Hopefully in the next day or two if okay with Dr. Colon. We will follow. Dictated By: KEYA GALE/DALE Conf#: [id number] DID#: [id number]
[2016-08-07] MEDS: morphine 2 MG INJ IV PRN ×2 (00:01→04:20)
[2016-08-07] MEDS: D5W-0.45 NACL + KCL 20 MEQ 1,000 ML IV SCH (00:11)
[2016-08-07] MEDS: PIPER-TAZO 3.375 GM IV (PMX) 100 ML IVPB SCH ×4 (05:11→23:42)
[2016-08-07] MEDS: HYDROmorphONE 1 MG/ML SYG IV PRN ×3 (05:19→16:20)
[2016-08-07 06:19] LABS: ADD SCAN DIFF NO
[2016-08-07 06:29] LABS: BASOPHILS % 0.2 % (0.0-2.0); EOSINOPHILS # 0.2 10^3/ul (0.0-0.5); EOSINOPHILS % 1.8 % (0.0-7.0); HEMATOCRIT 32.9 % (42.0-52.0); HEMOGLOBIN 10.8 g/dl (14.0-18.0); LYMPHOCYTES # 1.2 10^3/ul (0.8-2.9); LYMPHOCYTES % 14.1 % (15.0-51.0); MEAN CORPUSCULAR HGB CONC 32.8 g/dl (32.0-37.0); MEAN CORPUSCULAR VOLUME 91.4 fl (82.0-101.0); MEAN PLATELET VOLUME 9.9 fl (7.4-10.4); MONOCYTE # 0.8 10^3/ul (0.3-0.9); MONOCYTES % 9.6 % (0.0-11.0); NEUTROPHIL # 6.4 10^3/ul (1.6-7.5); NEUTROPHILS % 73.6 % (39.0-77.0); PLATELET COUNT 206 10^3/UL (140-415); RED CELL DISTRIBUTION WIDTH 12.2 % (11.5-14.5); WHITE BLOOD COUNT 8.7 10^3/ul (4.8-10.8)
[2016-08-07 06:32] VITALS: BP 101/55; RESP 19
[2016-08-07 06:58] LABS: ALBUMIN 3.6 g/dl (3.3-4.9); ALBUMIN/GLOBULIN RATIO 1.33; BILIRUBIN,INDIRECT 0.7 mg/dl (0-1.1); BILIRUBIN,TOTAL 0.7 mg/dl (0.2-1.3); CALCIUM 8.1 mg/dl (8.4-10.2); CREATININE 1.16 mg/dl (0.61-1.24); PHOSPHORUS 2.6 mg/dl (2.5-4.9); POTASSIUM 3.7 mmol/L (3.5-5.1); TOTAL PROTEIN 6.3 g/dl (6.1-8.1)
[2016-08-07 07:01] LABS: INR 1.17; PT RATIO 1.2
[2016-08-07 07:02] LABS: PARTIAL THROMBOPLASTIN TIME 36.8 Sec (25.0-35.0)
[2016-08-07 08:00] VITALS: BP 125/78; PULSE 82; RESP 18
[2016-08-07] MEDS: ENOXAPARIN 40 MG/0.4 ML SYG SC SCH (08:33)
[2016-08-07] MEDS ORDERED: FAMOTIDINE 20 MG INJ IV SCH (09:00)
[2016-08-07 12:00] VITALS: BP 112/76; PULSE 78; RESP 16
[2016-08-07] MEDS ORDERED: ZOLPIDEM 5 MG TAB PO PRN (14:00)
--- NOTE | 2016-08-07 14:36 | PN ---
DATE: 08/07/2016 SUBJECTIVE: The patient was seen and states that yesterday he had quite a lot of pain. Also, he is complaining of insomnia. Overall, the patient appears to be comfortable. He has been afebrile. OBJECTIVE: VITAL SIGNS: Temperature 98.6, pulse 78, respirations 16, blood pressure 112/76, saturation 95% on room air. GENERAL: No acute distress. The patient is obese. HEENT: Normocephalic, atraumatic. CARDIOVASCULAR: S1, S2, regular rate. LUNGS: Clear. ABDOMEN: Overall, soft, nontender. EXTREMITIES: No clubbing, cyanosis, or edema. LABORATORY DATA: Today show a white count of 8.7, normal hemoglobin 10.8. Likely hemodilution. He matocrit 33, platelet count of 206 with normal differential, neutrophils 74%, ____ slightly ____ 14, monocytes 10%. Chemistry: Sodium 136, potassium 3.7, chloride 103, bicarbonate 23, BUN is 13, cre atinine 1.16, and glucose of 94. LFTs are all normal. TSH was 1.98. UA was negative. Blood cultu res negative. Pathology report is still pending. MEDICATIONS: Reviewed and include the following 1. Pepcid 20 IV daily. 2. Lovenox 40 mg subcutaneous daily. 3. Clinton 5/325 q. 4 p.r.n. 4. Dilaudid 0.5 IV q. 2 p.r.n. and also 1 mg q. 2 p.r.n. for more severe pain. 5. Colace p.r.n. 6. Dulcolax p.r.n. 7. Fleet enema as directed. 8. Zosyn 3.375 IV q. 6. 9. Zofran p.r.n. 10. Tylenol p.r.n. 11. Morphine p.r.n. ASSESSMENT AND PLAN: This is a 61-year-old male who is obese with history of abdominal pa in and was found to have acute appendicitis. 1. Postop day #1 from laparoscopic appendectomy. White count is normal. Continue pain control. O ut of bed as tolerated. Advanced slowly as tolerated as currently he is on soft diet. 2. Insomnia. We will prescribe him Ambien p.r.n. 3. Continue Pepcid for gastrointestinal prophylaxis. 4. Activity as tolerated. 5. Continue deep vein thrombosis prophylaxis and gastrointestinal prophylaxis. 6. We will Hep-Lock IV fluids and encourage him to get more out of bed. 7. Anemia is likely partly hemodilution. We will follow. DISPOSITION: Soon. Dictated By: KEYA GALE/DALE Conf#: [id number] DID#: [id number] CC: SHARAD READ MD;*EndCC*
[2016-08-07 15:44] VITALS: BP 128/78; PULSE 88; RESP 16
[2016-08-07 22:48] VITALS: BP 106/59; RESP 18
--- NOTE | 2016-08-07 23:30 | PN ---
Date/Time of Note Date/Time of Note DATE: 08/07/16 TIME: 23:22 Assessment/Plan Lines/Catheters IV Catheter Type (from Nrs): Saline Lock Grande in Place (from Nrs): No Assessment/Plan Assessment/Plan [facility] Progress Note Date of Service: 08/07/16 Today's Impression & Plan: Overall doing well post op without major issues. No major wound problems. No indication for acute surgical intervention. With above assessment, I've recommended the following for today: 1. D/c plans when ok by Dr. Vazquez and other providers 2. F/u with me in 2-3 weeks 3. D/c instructions: Please call [phone] if any of fever, nausea, vomiting, discharge from wound , wound redness, increase or sudden pain, blood in stool or vomit, or any other unusual signs or symptoms. Also, please call the same number in a few days to schedule an appointment for your follow up visit. Patient may remove dressings tomorrow. Showers OK starting tomorrow. No swimming , hot tub or bath for 2 weeks. No lifting more than 25 lbs for 8 weeks. Thank you again for your great care of this very pleasant patient and wonderful family. If there are any questions, please feel free to call me at [phone]. TOTAL VISIT TIME: 20 minutes of which more than half was spent in [id number] discussion with the patient, possibly including family, as well as coordination of care between multiple physicians and providers. Disclaimer: Inadvertent spelling or grammatical errors are likely due to EHR/ dictation software use and do not reflect on the overall quality of patient care. Updated Clinical Summary: A very pleasant 61-year-old gentleman with comorbidities including BMI of 32.8 as well as coronary artery disease status post coronary artery bypass grafting in the 1960s, presenting with abdominal pain of 2 to 3-day duration and a CT scan that is worrisome for acute appendicitis. S/p an otherwise uncomplicated laparoscopic appendectomy with findings of non-perforated appendicitis that appeared to be retrocecal. COMORBIDITIES: 1. BMI 32.8. 2. Status post atrial septal defect in the 1960s. 3. A former smoker many years ago. 4. History of appendicitis in 2 other brothers status post appendectomies in the past. 5. History of prostate cancer in the father. 6. Atherosclerotic vascular disease. 7. Midline small umbilical hernia containing fat. 8. Bilateral inguinal hernias containing fat. 9. 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 Subjective: No major events or complaints; no major abd pain and incisional pain under control with medications; no n/v/d; no sob or cp; + flatus; - BM; minimal activity Objective: Vitals: See below Exam: GENERAL: On exam, the patient was laying in bed and appeared to be comfortable and in no acute distress. ABDOMEN: Soft, nontender and nondistended. Incision dressings are clean, dry and intact without any evidence of obvious underlying erythema, edema, discharge , or hernia. There are no peritoneal signs or guarding. SKIN: Skin appears to be pink and feels warm to touch. NEUROLOGIC: Patient is awake, alert, and follows commands appropriately. Exam/Review of Systems Vital Signs Vitals Vital Signs Date Time Temp Pulse Resp B/P Pulse Ox O2 Delivery O2 Flow Rate FiO2 08/07/16 22:48 98.5 86 18 106/59 96 08/07/16 15:44 Room Air 08/06/16 15:01 2.0 Intake and Output 08/06/16 08/06/16 08/07/16 15:00 23:00 07:00 Intake Total 1000 ml 600 ml 1700 ml Output Total 1030 ml 530 ml Balance -30 ml 600 ml 1170 ml Results Result Diagram: 08/07/16 0445 08/07/16 0445 SHARAD READ M.D. Aug 07, 2016 23:30
[2016-08-08] MEDS: PIPER-TAZO 3.375 GM IV (PMX) 100 ML IVPB SCH ×2 (05:15→13:00)
[2016-08-08] MEDS: HYDROmorphONE 1 MG/ML SYG IV PRN ×2 (06:16)
[2016-08-08 08:18] VITALS: BP 138/86; RESP 16
[2016-08-08] MEDS: ENOXAPARIN 40 MG/0.4 ML SYG SC SCH (08:20)
[2016-08-08] MEDS ORDERED: FAMOTIDINE 20 MG TAB PO SCH (09:00)
--- NOTE | 2016-08-08 10:31 | PN ---
Date/Time of Note Date/Time of Note DATE: 08/08/16 TIME: 10:30 Assessment/Plan Lines/Catheters IV Catheter Type (from Nrs): [place] in Place (from Nrs): No Assessment/Plan Assessment/Plan [facility] Progress Note Date of Service: 08/08/16 Today's Impression & Plan: Overall doing well post op without major issues. No major wound problems. No indication for acute surgical intervention. With above assessment, I've recommended the following for today: 1. D/c home today 2. F/u with me in 2-3 weeks 3. D/c instructions: Please call [phone] if any of fever, nausea, vomiting, discharge from wound , wound redness, increase or sudden pain, blood in stool or vomit, or any other unusual signs or symptoms. Also, please call the same number in a few days to schedule an appointment for your follow up visit. Patient may remove dressings tomorrow. Showers OK starting tomorrow. No swimming , hot tub or bath for 2 weeks. No lifting more than 25 lbs for 8 weeks. Thank you again for your great care of this very pleasant patient and wonderful family. If there are any questions, please feel free to call me at [phone]. TOTAL VISIT TIME: 20 minutes of which more than half was spent in [id number] discussion with the patient, possibly including family, as well as coordination of care between multiple physicians and providers. Disclaimer: Inadvertent spelling or grammatical errors are likely due to EHR/ dictation software use and do not reflect on the overall quality of patient care. Updated Clinical Summary: A very pleasant 61-year-old gentleman with comorbidities including BMI of 32.8 as well as coronary artery disease status post coronary artery bypass grafting in the 1960s, presenting with abdominal pain of 2 to 3-day duration and a CT scan that is worrisome for acute appendicitis. S/p an otherwise uncomplicated laparoscopic appendectomy with findings of non-perforated appendicitis that appeared to be retrocecal. COMORBIDITIES: 1. BMI 32.8. 2. Status post atrial septal defect in the 1960s. 3. A former smoker many years ago. 4. History of appendicitis in 2 other brothers status post appendectomies in the past. 5. History of prostate cancer in the father. 6. Atherosclerotic vascular disease. 7. Midline small umbilical hernia containing fat. 8. Bilateral inguinal hernias containing fat. 9. 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 Subjective: No major events or complaints; no major abd pain and incisional pain under control with medications; no n/v/d; no sob or cp; + flatus; - BM; + activity Objective: Vitals: See below Exam: GENERAL: On exam, the patient was laying in bed and appeared to be comfortable and in no acute distress. ABDOMEN: Soft, nontender and nondistended. Incision dressings d/c'd and incisions are clean, dry and intact without any evidence of obvious erythema, edema, discharge, or hernia. There are no peritoneal signs or guarding. SKIN: Skin appears to be pink and feels warm to touch. NEUROLOGIC: Patient is awake, alert, and follows commands appropriately. Exam/Review of Systems Vital Signs Vitals Vital Signs Date Time Temp Pulse Resp B/P Pulse Ox O2 Delivery O2 Flow Rate FiO2 08/08/16 08:18 98.1 82 16 138/86 94 08/07/16 15:44 Room Air 08/06/16 15:01 2.0 Intake and Output 08/07/16 08/07/16 08/08/16 15:00 23:00 07:00 Intake Total 100 ml 2180 ml 680 ml Output Total 1800 ml Balance 100 ml 380 ml 680 ml Results Result Diagram: 08/07/16 0445 08/07/16 0445 SHARAD READ M.D. Aug 08, 2016 10:30
--- NOTE | 2016-08-08 12:01 | PDOCDIS ---
Discharge Instructions CONDITION Patient Condition: Stable HOME CARE INSTRUCTIONS: Special Diet: SOFT ACTIVITY: Activity Restrictions: Slowly Increase Activity FOLLOW UP/APPOINTMENTS Follow-up Plan see prescriptions, any fever or worsening condition to call 911 or go to the ER. KEYA ISBELL MD Aug 08, 2016 12:01
[2016-08-08] MEDS ORDERED: ZOLP5TAB7 PO (12:03)
[2016-08-08] MEDS ORDERED: METR500T14 PO (12:03)
[2016-08-08] MEDS ORDERED: HYDR-3498 PO (12:03)
[2016-08-08] MEDS ORDERED: CIPR500T4 PO (12:03)
--- NOTE | 2016-08-08 12:56 | DS ---
DATE OF ADMISSION: 08/05/2016 DATE OF DISCHARGE: 08/06/2016 REASON FOR ADMISSION: Abdominal pain, acute, appendicitis, possible perforation. HOSPITAL COURSE: The patient is a 61-year-old obese male with no past medical history who was in usual state of health up until 2 weeks prior to admission when he noted vague abdominal disc omfort. In the day prior, he noted to have chills, abdominal pain was much worse, and he presented to my office. We decided to send him to the hospital as I was concerned about acute appendicitis. In the ER temperature was 100.8. The patient's CAT scan of the abdomen and pelvis showed acute elkin tonitis with fluid-filled encapsulated fluid collection below mid abdomen measuring 7.6 transverse x 6.5 in height x 5.5 cm AP. This is suspicious for mid abdominal abscess. There is adjacent tubula r inflamed structure of unclear etiology. It is unclear if this represented ____ small bowel or rup tured appendix ____ appendix which mid abdominal abscess will be of primary differential considerati on. There is also perinephric stranding atherosclerotic cardiovascular disease, midline small umbil ical hernia, bilateral inguinal hernias containing fat, atherosclerotic vascular disease, and spondy losis, see report. Status post median sternotomy. The patient is status post ASD repair. The sourav ent was started on Zosyn, n.p.o. status, and IV fluids. White count normalized, and the patient was taken to the operating room. The patient underwent laparoscopic appendectomy. Findings were acute appendicitis, retrocecal. The patient overall did well postoperatively, received pain medications, diet was advanced slowly and successfully. The patient's pathology report came back as follows, ac neymar appendicitis with perforation and periappendicitis. Also adipose tissue focally covered by ayan ia membrane, that was the umbilical hernia sac. The patient overall tolerated the procedure well. He will be discharged. Diet was advanced. Pain is minimal. The patient will be discharged with Am linda 5 mg at bedtime p.r.n. for insomnia, Fults 5/325 q.6h. p.r.n. for moderate pain. Also given a ntibiotics. It appears it was perforated, so I will give him Cipro and Flagyl for 5 more days. FINAL DIAGNOSES: 1. Acute appendicitis, questionable perforation. 2. Abdominal hernia and repair. 3. Obese state with body mass index of 32.8. 4. Anemia postop, likely partly hemodilution. 5. History of atrial septal defect repair. 6. Former smoker. Instructions prior discharged were given by Dr. Colon with some limitations. T he patient may return back to work on Friday the 13 of August. If there is any change in condition , fever, chills, increased abdominal pain, to call 911 or go to the nearest emergency department. DIET: Low fat, low carb diet. DISCHARGE INSTRUCTIONS: The patient to follow up with his doctor and Dr. Colon as well. Will see him in 1 to 2 weeks. Dictated By: KEYA GALE/DALE Conf#: [id number] DID#: [id number]
--- NOTE | 2016-08-09 10:11 | RADRPT ---
Vent Rate: 88 bpm RR Interval: 0 msec [place] Interval: 176 msec QRS Duration: 98 msec QT Interval: 386 msec QTC Interval: 467 msec P-R-T [place]: 50 - 51 - 61 degrees Normal sinus rhythm Increased R/S ratio in V1, consider early transition or posterior infarct Abnormal ECG Electronically Signed By: Sreekanth Purcell [id number]
== END 2016-08-08 13:50 | disposition home or self-care (01) | DRG 340 ==
LOC: FTE 13:07 → PP2 18:56
PROVIDERS: ADMIT Internal Medicine; ATTEND Internal Medicine
PROC: 0WQF4ZZ Repair Abdominal Wall, Percutaneous Endoscopic Approach (ICD-10-PCS; 2016-08-06)
PROC: 0DTJ4ZZ Resection of Appendix, Percutaneous Endoscopic Approach (ICD-10-PCS; principal; 2016-08-06 13:00)
DX: K35.3 Acute appendicitis with localized peritonitis (principal); D64.89 Other specified anemias; I70.90 Unspecified atherosclerosis; K42.9 Umbilical hernia without obstruction or gangrene; K40.90 Unilateral inguinal hernia, without obstruction or gangrene, not specified as recurrent; M47.896 Other spondylosis, lumbar region; M47.894 Other spondylosis, thoracic region; G47.00 Insomnia, unspecified; Z85.46 Personal history of malignant neoplasm of prostate; Z87.74 Personal history of (corrected) congenital malformations of heart and circulatory system; Z87.891 Personal history of nicotine dependence
CPT/HCPCS: 36415; 74176; 80053; 80061; 81001; 83036; 83605; 83690; 83735; 84100; 84443; 85025; 85610; 85730; 87040; 93005; 96361; 96374; 96375; 96376; J0131; J1170; J1650; J1885; J2250; J2270; J2370; J2405; J2543; J2710; J2765; J3010; J3480; J7030; J7999

== ENCOUNTER 2016-08-28 14:34 | Outpatient (CLI) | payer OTHER ==
[~2016-08-28] VITALS: Ht 189.2 cm; Wt 122.5 kg
[~2016-08-28 14:34] MED LIST: CIPR500T4 PO; HYDR-3498 PO; METR500T14 PO; ZOLP5TAB7 PO
[2016-08-28 14:50] VITALS: BP 155/87; PULSE 83; RESP 18; Ht 189.2 cm; Wt 122.5 kg
--- NOTE | 2016-08-28 15:53 | PN ---
Date/Time of Note Date/Time of Note DATE: 08/28/16 TIME: 14:46 Assessment/Plan Assessment/Plan Assessment/Plan [facility] Progress Note Date of Service: 08/28/16 Today's Impression & Plan: Overall doing well post op without major issues. No major wound problems. No indication for acute surgical intervention. Spent extra 15 minutes in counseling regarding healthy lifestyle changes and ways to achieve those including healthier choices of food, caloric intake education and consistent daily exercise. With above assessment, I've recommended the following for today: 1. F/u with PCP 2. F/u with us prn Nature of Presenting Problem: High severity Thank you again for your great care of this very pleasant patient and wonderful family. If there are any questions, please feel free to call me at [phone]. Disclaimer: Inadvertent spelling or grammatical errors are likely due to EHR/ dictation software use and do not reflect on the overall quality of patient care. Updated Clinical Summary: A very pleasant 61-year-old gentleman with comorbidities including BMI of 32.8 as well as coronary artery disease status post coronary artery bypass grafting in the 1960s, presenting with abdominal pain of 2 to 3-day duration and a CT scan that is worrisome for acute appendicitis. S/p an otherwise uncomplicated laparoscopic appendectomy and incidental repair of umbilical hernia with findings of non-perforated appendicitis that appeared to be retrocecal. Final path: appendicitis with perforation and with periappendicitis. COMORBIDITIES: 1. BMI 32.8. 2. Status post atrial septal defect in the 1960s. 3. A former smoker many years ago. 4. History of appendicitis in 2 other brothers status post appendectomies in the past. 5. History of prostate cancer in the father. 6. Atherosclerotic vascular disease. 7. Midline small umbilical hernia containing fat. 8. Bilateral inguinal hernias containing fat. 9. 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 Subjective: No major events or complaints since discharge; no major abd pain and no longer on pain medications; no n/v/d; no sob or cp; + flatus; + BM and normal; + activity Objective: Vitals: See below Exam: GENERAL: On exam, the patient was sitting in a chair and appeared to be comfortable and in no acute distress. ABDOMEN: Soft, nontender and nondistended. Incisions are clean, dry and intact without any evidence of obvious erythema, edema, discharge, or hernia. There are no peritoneal signs or guarding. SKIN: Skin appears to be pink and feels warm to touch. NEUROLOGIC: Patient is awake, alert, and follows commands appropriately. SHARAD READ M.D. Aug 28, 2016 14:56
== END 2016-08-28 16:45 | disposition home or self-care (01) ==
LOC: HPC 14:34
PROVIDERS: ATTEND Transplant Surgery
DX: K40.90 Unilateral inguinal hernia, without obstruction or gangrene, not specified as recurrent (principal); M47.896 Other spondylosis, lumbar region; I73.9 Peripheral vascular disease, unspecified
CPT/HCPCS: G0463